=== PATIENT | male | born 1995 | race Caucasian/White ===

== ENCOUNTER 2022-09-14 14:31 | Emergency (ER) | payer MEDICAID ==
[~2022-09-14] VITALS: Ht 170.2 cm; Wt 79.4 kg
[2022-09-14 14:42] VITALS: BP 118/60
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
[2022-09-14] MEDS ORDERED: IBUP-1842 PO (15:27)
[2022-09-14] MEDS ORDERED: BACI-416 TP (15:27)
[2022-09-14] MEDS ORDERED: AMOX-999 PO (15:27)
--- NOTE | 2022-09-14 15:37 | NUR ---
Patient discharged with v/s stable. Written and verbal after care instructions ABOUT ANIMAL BITE given and explained. Patient alert, oriented and verbalized understanding of instructions. Ambulatory with steady gait. All questions addressed prior to discharge. ID band removed. Patient advised to follow up with PMD. Rx of AUGMENTIN 500-125, BACITRACIN, MOTRIN given. Patient educated on indication of medication including possible reaction and side effects. Opportunity to ask questions provided and answered.
== END 2022-09-14 15:37 | disposition home or self-care (01) ==
LOC: MED 14:31
DX: S81.851A Open bite, right lower leg, initial encounter (principal); Z79.1 Long term (current) use of non-steroidal anti-inflammatories (NSAID); Z79.2 Long term (current) use of antibiotics; W54.0XXA Bitten by dog, initial encounter; Y93.89 Activity, other specified; Y92.89 Other specified places as the place of occurrence of the external cause; Y99.8 Other external cause status
CPT/HCPCS: 90471; 90715; 99283

== ENCOUNTER 2023-03-05 11:34 | Emergency (ER) | payer MEDICAID ==
[~2023-03-05] VITALS: Ht 170.2 cm; Wt 86.2 kg
[~2023-03-05 11:34] MED LIST: AMOX-999 PO; BACI-418 TP; IBUP-1842 PO
[2023-03-05 11:54] VITALS: BP 125/80; PULSE 99; RESP 18; TEMP 98.2; O2SAT 100
[2023-03-05] MEDS ORDERED: IBUPROFEN 600 MG TAB PO ONE (12:30)
[2023-03-05] MEDS ORDERED: ONDANSETRON 4 MG ODT PO ONE (12:30)
[2023-03-05] MEDS ORDERED: LIDOCAINE MPF 1% 10 MG/ML VIAL INJ ONE (12:30)
[2023-03-05] MEDS ORDERED: HYDROcodone/APAP 5/325 MG 1 TAB TAB PO ONE (12:30)
--- NOTE | 2023-03-05 13:00 | NUR ---
WOUND TO L RING FINGER DRESSED WITH NON ADHERENT.
[2023-03-05] MEDS ORDERED: IBUP-2213 PO (13:29)
[2023-03-05] MEDS ORDERED: AMOX-1230 PO (13:29)
[2023-03-05] MEDS ORDERED: BACITRACIN OINT 500 UNITS/GM PKT TP ONE (13:30)
[2023-03-05 13:37] VITALS: BP 105/76; PULSE 74; RESP 17; O2SAT 98
== END 2023-03-05 13:38 | disposition home or self-care (01) ==
LOC: MED 11:34
DX: L03.012 Cellulitis of left finger (principal); Z79.899 Other long term (current) drug therapy
CPT/HCPCS: 10060; 99284; J2001; Q0162

== ENCOUNTER 2023-08-07 15:34 | Emergency (ER) | payer MEDICAID ==
[~2023-08-07] VITALS: Ht 170.2 cm; Wt 88.9 kg
[~2023-08-07 15:34] MED LIST changes: +AMOX-1230 PO; +IBUP-2213 PO
[2023-08-07 15:47] VITALS: BP 126/84; PULSE 101; RESP 21; TEMP 98.1; O2SAT 100
[2023-08-07] MEDS ORDERED: ONDANSETRON 4 MG ODT PO ONE (16:25)
[2023-08-07] MEDS ORDERED: KETOROLAC 30 MG/ML VIAL IM ONE (16:25)
[2023-08-07 17:13] LABS: BASOPHILS % (AUTO) 0.2 % (0.0-2.0); EOSINOPHILS # (AUTO) 0.1 K/uL (0-0.4); EOSINOPHILS % (AUTO) 1.3 % (0.0-4.0); HEMATOCRIT 38.1 % (36-52); HEMOGLOBIN 13.5 g/dL (12.0-18.0); LYMPHOCYTES # (AUTO) 2.2 K/uL (2.0-11.5); LYMPHOCYTES % (AUTO) 25.8 % (20.5-51.1); MEAN CORPUSCULAR HEMOGLOBIN 30 pg (27-31); MEAN CORPUSCULAR HGB CONC 35 g/dL (33-37); MEAN CORPUSCULAR VOLUME 84.2 fL (80-94); MONOCYTES # (AUTO) 0.6 K/uL (0.8-1.0); MONOCYTES % (AUTO) 7.3 % (1.7-9.3); NEUTROPHILS # (AUTO) 5.6 K/uL (1.8-7.7); NEUTROPHILS % (AUTO) 65.4 % (42.2-75.2); PLATELET COUNT (AUTO) 285 K/uL (140-450); RED BLOOD CELL COUNT(AUTO) 4.53 MIL/uL (4.20-6.10); RED CELL DISTRIBUTION WIDTH 13.8 % (11.6-13.7); WHITE BLOOD COUNT (AUTO) 8.5 K/uL (4.8-10.8)
[2023-08-07 17:21] LABS: APPEARANCE,URINE CLEAR (CLEAR); BILIRUBIN,URINE NEGATIVE (NEGATIVE); BLOOD, URINE 1+ (NEGATIVE); COLOR,URINE YELLOW (YELLOW); LEUKOCYTE ESTERASE ,URINE NEGATIVE (NEGATIVE); NITRITE, URINE NEGATIVE (NEGATIVE); PH,URINE 6.5 (5.0-9.0); PROTEIN,URINE NEGATIVE (NEGATIVE); UGLUCOSE NEGATIVE (NEGATIVE); UROBILINOGEN,URINE 0.2 EU/dL (0.2 - 1)
[2023-08-07 17:25] LABS: BACTERIA,URINE FEW /HPF (None Seen); SQUAMOUS EPITHELIAL CELL,UR 0-3 (FEW) /LPF (0-3 (FEW)); WBC,URINE 0-5 /HPF (0-5)
[2023-08-07 17:33] LABS: ALBUMIN 3.1 g/dL (3.4-5.0); ANION GAP 13.6 (8-16); CALCIUM 8.5 mg/dL (8.5-10.1); CARBON DIOXIDE 27.2 mmol/L (21-32); CREATININE 2.2 mg/dL (0.6-1.3); POTASSIUM 3.8 mmol/L (3.5-5.1); TOTAL BILIRUBIN 1.3 mg/dL (0.0-1.0); TOTAL PROTEIN, SERUM 7.4 g/dL (6.4-8.2)
[2023-08-07] MEDS ORDERED: ONDA-188 PO (18:03)
[2023-08-07] MEDS ORDERED: TAMS0.4C96 PO (18:03)
[2023-08-07] MEDS ORDERED: ACET-10509 PO (18:03)
[2023-08-07] MEDS ORDERED: MAG355OR2 PO (18:04)
[2023-08-07] MEDS ORDERED: TRAM50TA3 PO (18:11)
[2023-08-07 18:48] VITALS: PULSE 99; RESP 21; TEMP 98.1; O2SAT 100
== END 2023-08-07 18:48 | disposition home or self-care (01) ==
LOC: MED 15:34
DX: R10.9 Unspecified abdominal pain (principal); R31.9 Hematuria, unspecified; N17.9 Acute kidney failure, unspecified; Z79.899 Other long term (current) drug therapy; Z79.2 Long term (current) use of antibiotics; Z79.1 Long term (current) use of non-steroidal anti-inflammatories (NSAID)
CPT/HCPCS: 36415; 74176; 80053; 81001; 82550; 83690; 85025; 96372; 99285; J1885; Q0162

== ENCOUNTER 2024-05-06 12:35 | Emergency (ER) | payer MEDICAID ==
[~2024-05-06] VITALS: Ht 170.2 cm; Wt 85.0 kg
[~2024-05-06 12:35] MED LIST changes: +ACET500T99 PO; +MAG355OR2 PO; +ONDA-188 PO; +TAMS0.4C96 PO; +TRAM50TA3 PO
[2024-05-06 12:51] VITALS: BP 113/65; PULSE 90; RESP 18; TEMP 98.1; O2SAT 98
[2024-05-06] MEDS ORDERED: CEPH-588 PO (13:38)
[2024-05-06] MEDS ORDERED: IBUP-2213 PO (13:38)
[2024-05-06] MEDS ORDERED: SULF-58 PO (23:08)
== END 2024-05-06 13:52 | disposition home or self-care (01) ==
LOC: MED 12:35
DX: L02.214 Cutaneous abscess of groin (principal); Z79.899 Other long term (current) drug therapy
CPT/HCPCS: 99283

== ENCOUNTER 2024-05-06 20:37 | Emergency (ER) | payer MEDICAID ==
[~2024-05-06] VITALS: Ht 170.2 cm; Wt 90.3 kg
[~2024-05-06 20:37] MED LIST changes: +CEPH-588 PO
[2024-05-06 20:51] VITALS: BP 125/75; PULSE 74; RESP 16; TEMP 98; O2SAT 98
[2024-05-06 22:13] LABS: BASOPHILS % (AUTO) 0.3 % (0.0-2.0); EOSINOPHILS # (AUTO) 0.3 K/uL (0-0.4); EOSINOPHILS % (AUTO) 3.2 % (0.0-4.0); HEMOGLOBIN 12.3 g/dL (12.0-18.0); LYMPHOCYTES # (AUTO) 2.7 K/uL (2.0-11.5); LYMPHOCYTES % (AUTO) 33.1 % (20.5-51.1); MEAN CORPUSCULAR HEMOGLOBIN 29 pg (27-31); MEAN CORPUSCULAR HGB CONC 34 g/dL (33-37); MEAN CORPUSCULAR VOLUME 83.9 fL (80-94); MONOCYTES # (AUTO) 0.7 K/uL (0.8-1.0); NEUTROPHILS # (AUTO) 4.6 K/uL (1.8-7.7); NEUTROPHILS % (AUTO) 55.4 % (42.2-75.2); PLATELET COUNT (AUTO) 241 K/uL (140-450); RED BLOOD CELL COUNT(AUTO) 4.29 MIL/uL (4.20-6.10); RED CELL DISTRIBUTION WIDTH 13.9 % (11.6-13.7); WHITE BLOOD COUNT (AUTO) 8.3 K/uL (4.8-10.8)
[2024-05-06 22:18] LABS: CALCIUM 8.3 mg/dL (8.5-10.1); CARBON DIOXIDE 30.2 mmol/L (21-32); POTASSIUM 4.2 mmol/L (3.5-5.1)
[2024-05-06 22:37] VITALS: BP 125/75; PULSE 74; RESP 16; TEMP 98; O2SAT 98
[2024-05-06] MEDS ORDERED: SULF-58 PO (23:08)
[2024-05-06] MEDS: KETOROLAC 60 MG/2 ML VIAL IM ONE (23:14)
[2024-05-06] MEDS: SULFAMETH/TRIMETH DS 800/160MG 1 TAB PO ONE (23:19)
== END 2024-05-06 23:21 | disposition home or self-care (01) ==
LOC: MED 20:37
DX: L02.214 Cutaneous abscess of groin (principal); Z79.899 Other long term (current) drug therapy
CPT/HCPCS: 36415; 80048; 85025; 85651; 86140; 96372; 99283; J1885